=== PATIENT | female | born 1995 | race African-American/Black ===

== ENCOUNTER 2021-12-24 17:47 | Emergency (ER) | payer MEDICAID, SELFPAY ==
[2021-12-24 17:57] VITALS: BP 116/74; PULSE 91; RESP 16; TEMP 36.3; O2SAT 100
--- NOTE | 2021-12-24 18:09 | ED.URI ---
HPI - URI/Sore Throat General Chief Complaint: Upper Respiratory Infection Stated Complaint: fever/sore throat/congestion Time Seen by Provider: 12/24/21 18:09 Source: patient Mode of arrival: ambulatory Limitations: no limitations History of Present Illness HPI Narrative: 26-year-old female presents to urgent care with vague symptoms. States that she moved here 1 week ago from [place] and feels that her symptoms are related to seasonal allergies. She has not taken any allergy medicine to treat the symptoms. She states that the other day she had a headache that has resolved. The last 2 days she has had nasal congestion. She reports that she has drainage in her throat that is changing my voice . Afebrile. No cough. All systems reviewed and negative except as noted above. Related Data Allergies Allergy/AdvReac Type Severity Reaction Status Date / Time No Known Allergies Allergy Verified 12/24/21 18:12 Review of Systems Review of Systems: CONSTITUTIONAL: Denies fever, chills, or sweats. EYES: Denies visual changes, redness, or discharge. ENT: Denies rhinorrhea, sore throat, or otalgia. Notes nasal congestion and postnasal drainage. CARDIOVASCULAR: Denies chest pain, palpitations, or edema. RESPIRATORY: Denies cough or dyspnea. GASTROINTESTINAL: Denies abdominal pain, nausea, vomiting, or diarrhea. GENITOURINARY: Denies dysuria or hematuria. SKIN: Denies rash or itching. MUSCULOSKELETAL: Denies back pain, joint pain, or myalgia. NEUROLOGIC: Denies headache, numbness, or weakness. PSYCHIATRIC: Denies anxiety or depression. All other systems reviewed are negative, except as documented in HPI. PMFSH Comments At time of signature, agree with nursing past medical, surgical, social and family history. There is no relevant family history pertinent to the presenting complaint. Exam Narrative: GENERAL: This is a well-nourished, well-developed patient, in no apparent distress. HEAD: normocephalic, atraumatic. EYES: PERRL. Sclera clear/white. Vision is grossly intact. EARS: External ears normal, auditory canals clear and without drainage, TMs normal without perforation. Hearing grossly intact. NOSE: External nose normal with clear nasal drainage, erythema to nares. THROAT: Mucous membranes moist, no erythema to posterior pharynx, clear postnasal drainage is noted. NECK: Neck supple, non-tender without lymphadenopathy, masses or thyromegaly. CARDIOVASCULAR: Regular rate and rhythm without murmurs, gallops, or rubs. RESPIRATORY: Clear to auscultation. Breath sounds equal bilaterally. No wheezes, rales, or rhonchi. SKIN: warm, Dry, intact with no suspicious lesions or rash, good texture and turgor. NEURO: awake, alert, and oriented to person, place and time. There were no obvious focal neurologic abnormalities. EXTREMITIES: Normal range of motion to all extremities. Course Course Level of Care: Express Care Visit Vital Signs Vital signs: Vital Signs Temperature 36.3 C L 12/24/21 17:57 Pulse Rate 91 12/24/21 17:57 Respiratory Rate 16 12/24/21 17:57 Blood Pressure 116/74 12/24/21 17:57 Pulse Oximetry 100 12/24/21 17:57 Temperature 36.3 C L 12/24/21 17:57 Pulse Rate 91 12/24/21 17:57 Respiratory Rate 16 12/24/21 17:57 Blood Pressure 116/74 12/24/21 17:57 Pulse Oximetry 100 12/24/21 17:57 Reviewed MDM - URI/Sore Throat MDM Narrative Medical decision making narrative: Patient is aware of diagnosis, understands and agrees to treatment plan. Anticipatory guidance given. Patient agrees to follow-up as directed and is aware of reasons to seek care at the emergency department. Portions of this record may have been created with voice recognition software Discharge Plan Discharge Clinical Impression: Seasonal allergies Patient Disposition: Home, Self-Care Condition: Stable Instructions: Allergies (ED) Additional Instructions: Take medications daily as prescribed. Prescriptions
== END 2021-12-24 18:25 | disposition home or self-care (01) ==
PROVIDERS: Emergency Provider Nurse Practitioner Family
DX: J30.2 Other seasonal allergic rhinitis (principal)
CPT/HCPCS: 99203; G0463

== ENCOUNTER 2022-10-29 19:58 | Emergency (ER) | payer BC, SELFPAY ==
--- NOTE | ~2022-10-29 | XR_ITS ---
EXAMINATION: XR lumbar spine 2-3V DATE: 10/29/2022 22:36 INDICATION: Lumbago. Radicular pain. TECHNIQUE: 3 views of lumbar spine were obtained. COMPARISON: None. FINDINGS: There is 16 degrees levoscoliosis of lumbar spine. Vertebral body heights are normal. There is mildly decreased disc height at L4-L5. The facet joints are normal. IMPRESSION: 1. Mild spondylosis at L4-L5. 2. Lumbar levoscoliosis. Reviewed, dictated and finalized at location A. [facility]
[2022-10-29 20:01] VITALS: BP 137/80; PULSE 85; RESP 20; TEMP 36.9; O2SAT 98
[2022-10-29 20:51] VITALS: BP 114/77; PULSE 94; RESP 16; TEMP 36.6; O2SAT 100
--- NOTE | 2022-10-29 20:59 | ED.BACK ---
HPI - Back Pain/Injury General Chief Complaint: Back Pain/Injury Stated Complaint: back pain Time Seen by Provider: 10/29/22 20:48 History of Present Illness HPI Narrative: This is a 26-year-old female with chief complaint of back pain onset 2 weeks ago. Denies any specific injury but does note that she has been lifting at the gym. She was seen in urgent care 1 week ago and given prednisone and methocarbamol. She states that she had facial swelling with methocarbamol so she stopped. She also stopped taking prednisone at that point. Today she states the pain is just been gradually getting worse. Does report radicular pain going down the back of the left leg past the knee. Does endorse occasional tingling, but states it feels like the muscles are tight. Denies fevers, chills, saddle anesthesia. Negative red flag back signs. Related Data Allergies Allergy/AdvReac Type Severity Reaction Status Date / Time No Known Allergies Allergy Verified 12/24/21 18:12 Review of Systems Review of Systems: CONSTITUTIONAL: Denies fever, chills, or sweats. EYES: Denies visual changes, redness, or discharge. ENT: Denies rhinorrhea, congestion, sore throat, or otalgia. CARDIOVASCULAR: Denies chest pain, palpitations, or edema. RESPIRATORY: Denies cough or dyspnea. GASTROINTESTINAL: Denies abdominal pain, nausea, vomiting, or diarrhea. GENITOURINARY: Denies dysuria or hematuria. SKIN: Denies rash or itching. MUSCULOSKELETAL: Endorses back pain. endorses radicular pain in the left leg. Denies joint pain, or myalgia. Denies weakness NEUROLOGIC: Denies headache, numbness, dizziness, or weakness. PSYCHIATRIC: Denies anxiety or depression. Exam Narrative: GENERAL: Well-appearing, well-nourished, and in no acute distress. HEAD: Normocephalic, atraumatic. EYES: PERRLA and EOMI. ENT: Nares clear, no rhinorrhea or epistaxis. Mucous membranes moist. Oropharynx without tonsillar hypertrophy exudate or other lesions. NECK: Supple. No adenopathy or masses. CHEST: No respiratory distress. Clear to auscultation. No wheezes rales or rhonchi HEART: Regular rate and rhythm. No murmur heard. Normal peripheral pulses. ABDOMEN: Soft, nontender, nondistended, normal active bowel sounds. MSK: Mild paraspinal tenderness on the left lumbar spine. Moderate tenderness in the left SI joint. Straight leg raise positive on the left. Straight leg raise negative on the right. Normal range of motion. No edema. SKIN: Warm, dry, no rash. NEURO: Alert and oriented x3. No focal deficits. PSYCH: Normal mood and affect. Course Vital Signs Vital signs: Vital Signs Temperature 98.5 F 10/29/22 20:01 Pulse Rate 85 10/29/22 20:01 Respiratory Rate 20 10/29/22 20:01 Blood Pressure 137/80 10/29/22 20:01 Pulse Oximetry 98 10/29/22 20:01 Oxygen Delivery Room Air 10/29/22 20:01 Temperature 97.9 F 10/29/22 20:51 Pulse Rate 94 10/29/22 20:51 Respiratory Rate 16 10/29/22 20:51 Blood Pressure 114/77 10/29/22 20:51 Pulse Oximetry 100 10/29/22 20:51 Oxygen Delivery Room Air 10/29/22 20:01 MDM - Back Pain/Injury MDM Narrative Medical decision making narrative: Patients injury or pain is consistent with musculoskeletal etiology. No signs of neurological or vascular compromise on exam. No red flag back symptoms or signs. Pain is felt appropriate for further evaluation on an outpatient basis. Discussed keeping her appointment with her new PCP this week. She can keep taking prednisone as tolerated. Take 500mg - 1000mg of Tylenol every 4-6 hours as needed for pain and fever. Do not exceed 1000mg in 4 hours or 4000mg in 24 hours. Take 200mg - 600mg of ibuprofen every 4-6 hours as needed for pain and fever. Do not exceed 2400mg in 24 hours. Medications as needed and prescribed. Limit lifting and bending. You may apply heat or cold to the area as needed. Follow up with your doctor for further care. Contact your doctor or return to the [facility]
[2022-10-29] MEDS: IBUPROFEN 400 MG TABLET 800 MG PO (21:44)
[2022-10-29 23:08] VITALS: BP 124/80; PULSE 74; RESP 12; O2SAT 98
== END 2022-10-29 23:09 | disposition home or self-care (01) ==
PROVIDERS: Emergency Provider Physician Assistant; PCP Family Medicine
DX: M54.42 Lumbago with sciatica, left side (principal); M54.16 Radiculopathy, lumbar region; M41.9 Scoliosis, unspecified
CPT/HCPCS: 72100; 81025; 99283; A9270